=== PATIENT | male | born 1980 | race Two or more races ===

== ENCOUNTER 2018-08-15 14:19 | Emergency (ER) | payer SELFPAY ==
[2018-08-15 14:43] VITALS: BP 132/82
--- NOTE | 2018-08-15 15:26 | UC ---
Abdominal Pain Male HPI - HPI Summary HPI Summary: 38 year old male presents with complaints of abdominal pain and bloating for over a week. Patient flew in from [place] to visit some friends on 08/03/2018. States he was feeling well until 08/05/2018 when he developed some abdominal cramping and bloating and thought he may have some constipation from the travel. He took an over the counter laxative and the next day he had a normal BM. He continued to have some bloating and that evening had 1 episode of emesis after eating supper. He took an antispasmotic he was prescribed and a over the counter gas medicine without relief. He has had no further episodes of vomiting and states he has been eating/drinking normally but continues to have generalized abdominal pain and abdominal bloating. States he is having loose stools daily. Has had a couple of episodes of bright red blood on the tissue paper after wiping but states he has a hemorrhoid. History of appendectomy and previous bowel obstruction. Denies fever, chills, chest pain, SOB, back or flank pain, dysuria, frequency, urgency, or hematuria. - History of Current Complaint Chief Complaint: UCAbdominalPain Stated Complaint: STOMACH PAIN/BLOATED Time Seen by Provider: 08/15/18 14:52 Hx Obtained From: Patient Pain Intensity: 5 - Allergies/Home Medications Allergies/Adverse Reactions: Allergies Allergy/AdvReac Type Severity Reaction Status Date / Time nickel Allergy Unknown Verified 08/15/18 16:12 Reaction Details dust mites Allergy Congestion Uncoded 08/15/18 16:12 Home Medications: Home Medications Albuterol Sulfate [Ventolin Hfa] 2 puff INH DAILY PRN 08/15/18 [History Confirmed 08/15/18] Anti Bloating Medication 1 tab PO DAILY PRN 08/15/18 [History Confirmed 08/15/18 ] Antihistimine 1 tab PO DAILY 08/15/18 [History Confirmed 08/15/18] Antispasmodic 1 tab PO DAILY PRN 08/15/18 [History Confirmed 08/15/18] Budesonide/Formote 160/4.5(NF) [Symbicort 160/4.5 (NF)] 1 puff INH DAILY [History Confirmed 08/15/18] Hemmoroid Cream 1 applic TOPICAL DAILY PRN 08/15/18 [History Confirmed 08/15/18] Omeprazole 1 tab PO DAILY PRN 08/15/18 [History Confirmed 08/15/18] Simethicone [Gas-X] 1 tab PO ONCE PRN 08/15/18 [History Confirmed 08/15/18] PMH/Surg Hx/FS Hx/Imm Hx Previously Healthy: Yes GI/ History: Other - Appendicitis, bowel obstruction - Surgical History Surgical History: Yes Surgery Procedure, Year, and Place: bowel obstruction. appendectomy. left and right knee surgeries - Family History Known Family History: Positive: Non-Contributory - Social History Occupation: Employed Full-time Lives: With Family Alcohol Use: Occasionally Substance Use Type: None Smoking Status (MU): Never Smoked Tobacco Review of Systems All Other Systems Reviewed And Are Negative: Yes Constitutional: Negative: Fever, Chills Respiratory: Negative: Shortness Of Breath, Cough Cardiovascular: Negative: Palpitations, Chest Pain Gastrointestinal: Positive: Abdominal Pain, Vomiting, Diarrhea - Loose stool, Nausea, Other - Abdominal bloating Genitourinary: Negative: Dysuria, Hematuria, Frequency, Urgency Musculoskeletal: Positive: Negative Neurological: Positive: Negative Is Patient Immunocompromised?: No Physical Exam - Summary Physical Exam Summary: GENERAL APPEARANCE: Well developed, well nourished, alert and cooperative, and appears to be in no acute distress. CARDIAC: Normal S1 and S2. No S3, S4 or murmurs. Rhythm is regular. There is no peripheral edema, cyanosis or pallor. Extremities are warm and well perfused. Capillary refill is less than 2 seconds. Peripheral pulses intact. LUNGS: Clear to auscultation without rales, rhonchi, wheezing or diminished breath sounds. ABDOMEN: Diminished bowel sounds. Soft, nondistended abdomen. RUQ tenderness without guarding or rebound. No masses or hepatosplenomegally. No CVA tenderness. MUSKULOSKELETAL: ROM intact to all extremities. No joint erythema or tenderness. Normal muscular development. Normal gait. SKIN: Skin normal color, texture and turgor with no lesions or eruptions. Triage Information Reviewed: Yes Vital Signs: Initial Vital Signs Temp 98.9 F 08/15/18 14:28 Pulse 70 08/15/18 14:28 Resp 18 08/15/18 14:28 BP 132/82 08/15/18 14:28 Pulse Ox 97 08/15/18 14:28 Vital Signs Reviewed: Yes Abd Pain Male Course/Dx - Course Course Of Treatment: 38 year old male presents with complaints of abdominal pain and bloating for over a week. Patient flew in from [place] to visit some friends on 08/03/2018. States he was feeling well until 08/05/2018 when he developed some abdominal cramping and bloating and thought he may have some constipation from the travel. He took an over the counter laxative and the next day he had a normal BM. He continued to have some bloating and that evening had 1 episode of emesis after eating supper. He took an antispasmotic he was prescribed and a over the counter gas medicine without relief. He has had no further episodes of vomiting and states he has been eating/drinking normally but continues to have generalized abdominal pain and abdominal bloating. States he is having loose stools daily. Has had a couple of episodes of bright red blood on the tissue paper after wiping but states he has a hemorrhoid. History of appendectomy and previous bowel obstruction. Denies fever, chills, chest pain, SOB, back or flank pain, dysuria, frequency, urgency, or hematuria. Afebrile. VSS. Patiend had diminished bowel sounds, soft, nondistended abdomen, RUQ tenderness without guarding or rebound, no masses or hepatosplenomegally, no CVA tenderness and otherwise unremarkable exam. I discussed with the patient that I have a low suspicion for an acute abdominal pathology however with the RUQ pain and his history of previous bowel obstruction that I cannot fully rule out these conditions. I did offer to obtain an US and plain abdominal X-ray to evaluate for these conditions but also explained that if these exams are inconclusive he may need further evaluation in the ED. Patient states that due to costs, he would prefer to just be evaluated in the ED at this time. He is electing to transport via private vehicle with his friend driving. - Differential Dx/Clinical Impression Differential Diagnosis/HQI/PQRI: Bowel Obstruction, Constipation, Gall Bladder Disease, Peptic Ulcer Disease Provider Diagnosis: RUQ abdominal pain Discharge - Sign-Out/Discharge Documenting (check all that apply): Patient Departure All imaging exams completed and their final reports reviewed: No Studies - Discharge Plan Condition: Stable Disposition: HOME-RECOMMEND TO ED Patient Education Materials: Acute Abdominal Pain (ED) Referrals: No Primary Care Phys,NOPCP [Primary Care Provider] - Additional Instructions: Based on your history and exam I cannot explain your symptoms and cannot fully rule out causes such as gall bladder disease or obstruction. I am recommending that you go to the emergency room at this time for further evaluation. Go directly to the emergency room from here. Do not eat or drink anything until you have been evaluated. - Billing Disposition and Condition Condition: STABLE Disposition: Home-Recommend to ED - Attestation Statements Provider Attestation: Per institutional requirements, I have reviewed the chart, however, I was not consulted specifically or made aware of this patient by the midlevel provider. I did not personally evaluate, interact with , or disposition this patient.
== END 2018-08-15 15:40 | disposition home health service (06) ==
LOC: UCEAST 14:19
DX: R10.11 Right upper quadrant pain (principal); R11.2 Nausea with vomiting, unspecified; R19.7 Diarrhea, unspecified; R14.0 Abdominal distension (gaseous); Z90.89 Acquired absence of other organs
CPT/HCPCS: 99202; G0463

== ENCOUNTER 2018-08-15 16:06 | Emergency (ER) | payer SELFPAY ==
[2018-08-15] MEDS ORDERED: NS 0.9% 1000 ML** 1,000 ML IV ONE (16:35)
--- NOTE | 2018-08-15 16:53 | ED ---
GI/ HPI - HPI Summary HPI Summary: 38-year-old male presents with abdominal pain for the past week. States that it is feels like a tightness in his abdomen. He does have a history of bowel obstruction requiring surgery and appendectomy. He has been having loose stool. He states he does have occasional blood when wipes but does not happen all the time. He had one episode of vomiting. States has pain is greatest when he pushes in the right upper quadrant. Denies any chest pain or shortness breath. No recent illness. Has history of allergies and asthma. - History of Current Complaint Chief Complaint: EDAbdPain Time Seen by Provider: 08/15/18 16:28 Stated Complaint: ABD PAIN PER PT Pain Intensity: 5 - Allergy/Home Medications Allergies/Adverse Reactions: Allergies Allergy/AdvReac Type Severity Reaction Status Date / Time nickel Allergy Unknown Verified 08/15/18 16:12 Reaction Details dust mites Allergy Congestion Uncoded 08/15/18 16:12 PMH/Surg Hx/FS Hx/Imm Hx Endocrine/Hematology History: Denies: Hx Anticoagulant Therapy Respiratory History: Reports: Hx Asthma - as a child, at times comes back - Surgical History Surgery Procedure, Year, and Place: bowel obstruction. appendectomy. left and right knee surgeries Infectious Disease History: No Infectious Disease History: Reports: Traveled Outside the [place] in Last 30 Days - Family History Known Family History: Positive: Non-Contributory - Social History Alcohol Use: Occasionally Substance Use Type: Reports: None Smoking Status (MU): Never Smoked Tobacco Review of Systems Negative: Fever Negative: Chest Pain Negative: Shortness Of Breath Positive: Abdominal Pain, Vomiting, Diarrhea, Nausea All Other Systems Reviewed And Are Negative: Yes Physical Exam Triage Information Reviewed: Yes Vital Signs On Initial Exam: Initial Vitals Temp Pulse Resp BP Pulse Ox 97.5 F 63 19 128/93 100 08/15/18 16:08 08/15/18 16:08 08/15/18 16:08 08/15/18 16:08 08/15/18 16:08 Vital Signs Reviewed: Yes Appearance: Positive: Well-Appearing Skin: Positive: Warm, Dry Head/Face: Positive: Normal Head/Face Inspection Eyes: Positive: Normal, Conjunctiva Clear ENT: Positive: Pharynx normal Respiratory/Lung Sounds: Positive: Clear to Auscultation, Breath Sounds Present Cardiovascular: Positive: Normal, RRR Abdomen Description: Positive: Soft, Other: - tenderness in RUQ Bowel Sounds: Positive: Present Musculoskeletal: Positive: Normal Neurological: Positive: Normal Psychiatric: Positive: Normal Diagnostics - Vital Signs Vital Signs Temp Pulse Resp BP Pulse Ox 08/15/18 16:08 97.5 F 63 19 128/93 100 - Laboratory Result Diagrams: 08/15/18 16:49 08/15/18 16:49 Lab Statement: Any lab studies that have been ordered have been reviewed, and results considered in the medical decision making process. - Radiology abd Radiology Interpretation Completed By: Radiologist Summary of Radiographic Findings: IMPRESSION: No free air or obstruction is noted. - Ultrasound No standard instances Ultrasound Interpretation Completed By: Radiologist Summary of Ultrasound Findings: IMPRESSION: No evidence of cholelithiasis or biliary duct dilatation is noted. Re-Evaluation - Re-Evaluation First Eval Re-Evaluation Time: 18:28 Comment: pain now in LLQ so will get Ct [facility] Course/Dx - Course Course Of Treatment: 38-year-old male presents with abdominal pain for the past week. States that it is feels like a tightness in his abdomen. He does have a history of bowel obstruction requiring surgery and appendectomy. He has been having loose stool. He states he does have occasional blood when wipes but does not happen all the time. He had one episode of vomiting. States has pain is greatest when he pushes in the right upper quadrant. Denies any chest pain or shortness breath. No recent illness. Has history of allergies and asthma. On exam tenderness right upper quadrant. wbc normal. crp normal. gallbladder u/ s normal. xray no obstruction. on reevulation patient tenderness in LLQ so will get CT. CT no acute findings. discussed results with patient will prescribe hyoscyamine for pain. patient understand and agrees with plan. - Diagnoses Differential Diagnoses - Male: Bowel Obstruction, Colitis, Urinary Tract Infection Provider Diagnoses: Abdominal pain Discharge - Sign-Out/Discharge Documenting (check all that apply): Patient Departure Patient Received Moderate/Deep Sedation with Procedure: No - Discharge Plan Condition: Good Disposition: HOME Prescriptions: Hyoscyamine TAB* [Anaspaz 0.125 MG TAB*] 0.125 mg PO TID PRN #30 tab PRN Reason: Pain Patient Education Materials: Abdominal Pain (ED) Referrals: No Primary Care Phys,NOPCP [Primary Care Provider] - Additional Instructions: take hyoscyamine three times a day Take tyenlol as needed for pain every 6 hours follow a bland diet Return to ED if develop any new or worsening symptoms - Billing Disposition and Condition Condition: GOOD Disposition: Home
[2018-08-15 16:58] LABS: ABS Eosinophils 0.1 10^3/ul (0-0.6); ABS Lymphocytes 1.6 10^3/ul (1.0-4.8); ABS Monocytes 0.5 10^3/ul (0-0.8); ABS Neutrophils 5.3 10^3/ul (1.5-7.7); Eosinophil % 1.3 %; Hematocrit 45 % (42-52); Hemoglobin 15.7 g/dL (14.0-18.0); Lymphocyte % 20.9 %; Mean Corpuscular HGB Conc 35 g/dL (31-36); Mean Corpuscular Hemoglobin 30 pg (27-31); Mean Corpuscular Volume 84 fL (80-94); Mean Platelet Volume 7.6 fL (7.4-10.4); Nucleated Red Blood Cells % 0.1; Platelet Count 308 10^3/uL (150-450); Red Blood Count 5.31 10^6 /uL (4.18-5.48); Red Cell Distribution Width 13 % (10-15); White Blood Count 7.5 10^3/uL (3.5-10.8)
[2018-08-15 17:15] LABS: Albumin 4.8 g/dL (3.2-5.2); Albumin/Globulin Ratio 1.7 (1-3); BUN/Creatinine Ratio 10.1 (8-20); C Reactive Protein 2.13 mg/L (<8.01); Calcium 9.5 mg/dL (8.6-10.3); EGFR African American 131.4 (>60); EGFR Non-African American 108.6 (>60); Globulin 2.8 g/dL (2-4); Potassium 4.2 mmol/L (3.5-5.0); Total Bilirubin 0.8 mg/dL (0.2-1.0); Total Protein 7.6 g/dL (6.4-8.9)
[2018-08-15 17:36] LABS: Urine Appearance Clear; Urine Bilirubin Negative (Negative); Urine Blood Negative (Negative); Urine Color Straw; Urine Glucose Negative (Negative); Urine Ketones Negative (Negative); Urine Nitrite Negative (Negative); Urine Protein Negative (Negative); Urine Specific Gravity 1.004 (1.010-1.030); Urine Urobilinogen Negative (Negative)
[2018-08-15] MEDS ORDERED: Iohexol 300* (CONTRAST) 10 ML SDV IV ONE (19:18)
[2018-08-15] MEDS ORDERED: Hyoscyamine TAB* 0.125 MG PO ONE (20:46)
[2018-08-15 21:02] VITALS: BP 132/88
== END 2018-08-15 21:02 | disposition home or self-care (01) ==
LOC: ED 16:06
DX: R10.9 Unspecified abdominal pain (principal)
CPT/HCPCS: 36415; 74019; 74177; 76705; 80053; 81003; 83605; 83690; 85025; 86140; 96360; 99283; Q9967